=== PATIENT | female | born 1975 | race Two or more races ===

== ENCOUNTER 2021-01-23 22:49 | Emergency (ER) | payer SELFPAY ==
[~2021-01-23] VITALS: Ht 160 cm; Wt 80.0 kg
[2021-01-23 23:37] VITALS: BP 121/72
[2021-01-23 23:42] LABS: BILIRUBIN,URINE NEGATIVE (NEG); CLARITY,URINE CLEAR; COLOR,URINE YELLOW; NITRITE,URINE NEGATIVE (NEG); PH,URINE 5.5 (<5.0-8.0); PROTEIN,URINE NEGATIVE (NEG-TRACE); UROBILINOGEN,URINE 0.2 mg/dL (0.2 mg/dL)
[2021-01-23 23:53] LABS: BACTERIA,URINE 0 /HPF (0-FEW); RBC,URINE OCC /HPF (0-2)
--- NOTE | 2021-01-24 00:03 | PHYS DOC ---
Past Medical History Additional Past Medical Histor: INTESTINAL PROBLEMS Past Surgical History: Hysterectomy General Adult EDM: Chief Complaint: ABDOMINAL PAIN HPI: HPI: Patient is a 45 year old female with is currently on no Rx medications presents with the chief right lower quadrant abdominal pain. Patient states she has had abdominal pain for 1 week. Is located in the right lower quadrant does not radiate. Associated symptoms include nausea and vomiting. Review of Systems: Review of Systems: Review of systems: Constitutional symptoms- No fever, no chills. Eyes- No Discharge, No Visual Loss Respiratory symptoms- No shortness of breath, No wheezing, No Dyspnea on Exertion Cardiovascular Systems; No chest pain, No Palpitations, No syncope Gastrointestinal symptoms: Positive abdominal pain, Positive nausea, Positive vomiting no diarrhea. Genitourinary symptoms: No dysuria. Musculoskeletal symptoms: No back pain No extremity pain. NEUROLOGICAL Symptoms: No headache, no generalized weakness; No focal Weakness Skin: No rash. Heart Score: C/O Chest Pain: N/A Risk Factors: Risk Factors: DM, Current or recent (<one month) smoker, HTN, HLP, family history of CAD, obesity. Risk Scores: Score 0 - 3: 2.5% MACE over next 6 weeks - Discharge Home Score 4 - 6: 20.3% MACE over next 6 weeks - Admit for Clinical Observation Score 7 - 10: 72.7% MACE over next 6 weeks - Early Invasive Strategies Current Medications: Current Medications Medications (Trade) Dose Ordered Sig/Radha Start Time Stop Time Status Last Admin Dose Admin Morphine Sulfate (Morphine Sulfate) 4 mg 1X ONCE 01/24/21 00:00 01/24/21 00:01 UNV Sodium Chloride 1,000 ml @ 1,000 mls/hr 1X ONCE 01/24/21 00:00 01/24/21 00:59 UNV Allergies: Allergies: Allergies Coded Allergies Type Severity Reaction Last Updated Verified No Known Drug Allergies 01/23/21 No Physical Exam: PE: General: alert, no acute distress. Skin: warm, dry and intact, no erythema, no rash. HENT: bilateral external ears normal, oropharynx moist, nose normal. Head:: Normocephalic, atraumatic. Neck: Trachea midline. Eyes: EOMI, Normal conjunctiva, No drainage CARDIOVASCULAR: Regular rate and rhythm RESPIRATORY: No respiratory distress Back: Full range of motion. MUSCULOSKELETAL: Full range of motion of bilateral upper and lower extremities. GASTROINTESTINAL: tenderness to palpation right lower quadrant, no rebound or guarding. NEUROLOGICAL: Alert and noted to person, place and time. No neurological deficits observed Psychiatric: Cooperative. Normal judgment Current Patient Data: Labs: Laboratory Tests Test 01/23/21 23:28 01/23/21 23:31 Urine Collection Type Unknown Urine Color Yellow Urine Clarity Clear Urine pH 5.5 (<5.0-8.0) Urine Specific [place] 1.025 (1.000-1.030) Urine Protein Negative mg/dL (NEG-TRACE) Urine Glucose (UA) Negative mg/dL (NEG) Urine Ketones (Stick) Negative mg/dL (NEG) Urine Blood Negative (NEG) Urine Nitrite Negative (NEG) Urine Bilirubin Negative (NEG) Urine Urobilinogen Dipstick 0.2 mg/dL (0.2 mg/dL) Urine Leukocyte Esterase Negative (NEG) Urine RBC Occ /HPF (0-2) Urine WBC 1-4 /HPF (0-4) Urine Squamous Epithelial Cells Mod /LPF Urine Bacteria 0 /HPF (0-FEW) Urine Mucus Mod /LPF POC Urine HCG, Qualitative Hcg negative (Negative) Vital Signs: Vital Signs Date Time Temp Pulse Resp B/P (MAP) Pulse Ox O2 Delivery O2 Flow Rate FiO2 01/23/21 23:37 98.2 64 16 121/72 100 Room Air 98.2 EKG: EKG: [] Radiology/Procedures: Radiology/Procedures: [] Course & Med Decision Making: Course & Med Decision Making Pertinent Labs and Imaging studies reviewed. (See chart for details) [] Patient was evaluated for chief complaint. Work-up consisted of laboratory analysis and radiologic imaging. Results reviewed and discussed with patient. Patient's CMP without acute abnormalities. CT abdomen pelvis interpretation by radiologist as negative. Patient was treated with morphine and Zofran with improvement of symptoms. Patient states pain is almost completely resolved. Discharge patient home with Ultram and Zofran. Patient to follow-up with primary care physician. Dio Disclaimer: Dio Disclaimer: This electronic medical record was generated, in whole or in part, using a voice recognition dictation system. Departure Departure Impression: Primary Impression: Abdominal pain Disposition: HOME / SELF CARE / HOMELESS Condition: STABLE Referrals: NO PCP (PCP) Patient Instructions: Abdominal Pain Scripts Ondansetron Hcl (ZOFRAN) 4 Mg Tablet 1 TAB PO Q6HRS, #20 TAB Prov: ТАТЬЯНА LOZANO DO 01/24/21 Tramadol Hcl (ULTRAM) 50 Mg Tablet 1 TAB PO PRN Q6HRS PRN for pain MDD 4 Tablet(s) for 7 Days, #28 TAB 0 Refills Prov: ТАТЬЯНА LOZANO DO 01/24/21 ТАТЬЯНА LOZANO DO Jan 24, 2021 00:03
[2021-01-24] MEDS ORDERED: CONTRAST GIVEN. MC PRN (00:15)
[2021-01-24] MEDS ORDERED: IOHEXOL 300 MG/ML 100ML VIAL. IV ONE (00:30)
[2021-01-24] MEDS ORDERED: MORPHINE SULFATE 4 MG/ML INJ. IVP ONE (00:30)
[2021-01-24] MEDS ORDERED: IV NORMAL SALINE 1000ML BAG 1,000 ML IV ONE (00:30)
[2021-01-24 00:33] LABS: CALCIUM 9.7 mg/dL (8.5-10.1); CREATININE 0.9 mg/dL (0.6-1.0); POTASSIUM 4.2 mmol/L (3.5-5.1)
[2021-01-24 00:39] LABS: ALBUMIN 4.2 g/dL (3.4-5.0); ALBUMIN/GLOBULIN RATIO 1.1 (1.0-1.7); TOTAL BILIRUBIN 0.2 mg/dL (0.2-1.0); TOTAL PROTEIN 8.1 g/dL (6.4-8.2)
--- NOTE | 2021-01-24 01:17 | RAD ---
Study: CT abdomen/pelvis with intravenous contrast Indication: Right lower quadrant abdominal pain. Comparison: None. Technique: Helical CT imaging performed of the abdomen and pelvis after the intravenous administratio n of 75 cc Omnipaque 300 contrast. Sagittal and coronal reformats were obtained. One or more of the following individualized dose reduction techniques were utilized for this examinat ion: 1. Automated exposure control 2. Adjustment of the mA and/or kV according to patient size 3. Use of iterative reconstruction technique. Findings: Subpleural right lower lobe pulmonary nodule on image 2 series 2 measuring 7 mm AP. Probable partiall y imaged 3 mm nodule at the upper aspect of the right middle lobe on image 1 series 2. A few addition al millimetric nodules. Mild bibasilar volume loss. Partially imaged right lateral chest wall lymph n ode on image 1 series 2 measuring 0.7 cm short axis. Hepatic steatosis. No discrete parenchymal abnormality. Within normal limits gallbladder, biliary vane e, pancreas and spleen. No adrenal gland mass. Symmetric renal parenchymal enhancement. No hydronephr osis. Unremarkable urinary bladder which is mildly distended. Absent uterus. No adnexal mass. No acute abnormality of the colon. Mild volume well-formed stool burden. Normal appendix. Nonobstruct ed small bowel. Poorly evaluated stomach on account of underdistention. No major vascular abnormality. No lymphadenopathy. No acute or aggressive osseous process. Mild periarticular sclerosis at the right more so than left S I joints without ankylosis or large erosion. Impression: 1. No acute abnormality identified throughout the abdomen or pelvis. In the setting of reported righ t lower quadrant pain the appendix is normal. 2. A few pulmonary nodules at the lower lobes the largest at the subpleural aspect of the right lowe r lobe measuring up to 7 mm. The additional nodules are 3 mm or less. Per Fleischner guidelines for a n incidental nodule measuring between 6 to 8 mm, follow-up CT chest in 6-12 months. 3. Hepatic steatosis. Electronically signed by: ABDULAZIZ SEQUEIRA MD (01/24/2021 1:14 AM) [facility] [place]
[2021-01-24] MEDS ORDERED: ONDA4TAB7 PO (02:52)
[2021-01-24] MEDS ORDERED: TRAM-48 PO (02:52)
[2021-01-24 02:56] LABS: BASO % 1 % (0-3); EOS # 0.2 x10^3/uL (0.0-0.7); EOS % 2 % (0-3); HEMATOCRIT 42.2 % (36.0-47.0); HEMOGLOBIN 14.2 g/dL (12.0-15.5); LYMPH # 3.6 x10^3/uL (1.0-4.8); LYMPH % 48 % (24-48); MEAN CORPUSCULAR HEMOGLOBIN 30 pg (25-35); MEAN CORPUSCULAR HGB CONC 34 g/dL (31-37); MEAN CORPUSCULAR VOLUME 89 fL (79-100); MONO # 0.6 x10^3/uL (0.0-1.1); MONO % 8 % (0-9); NEUT # 3.1 x10^3/uL (1.8-7.7); NEUT % 41 % (31-73); PLATELET COUNT 270 x10^3/uL (140-400); RED BLOOD COUNT 4.76 x10^6/uL (3.50-5.40); WHITE BLOOD COUNT 7.6 x10^3/uL (4.0-11.0)
== END 2021-01-24 03:09 | disposition home or self-care (01) ==
LOC: ER 22:49
DX: R10.31 Right lower quadrant pain (principal); R11.2 Nausea with vomiting, unspecified; Z90.710 Acquired absence of both cervix and uterus
CPT/HCPCS: 36415; 74177; 80053; 81001; 81025; 83690; 85025; 96361; 96374; 99285; J2270; J7030; Q9967

== ENCOUNTER → 2021-03-14 | Outpatient (CLI) | payer OTHER ==
[~2021-03-14] MED LIST: CONTRAST GIVEN. MC PRN; IOHEXOL 240 MG/ML 50ML VIAL. PO ONE; IOHEXOL 300 MG/ML 100ML VIAL. IV ONE; ONDA4TAB7 PO; TRAM-48 PO
--- NOTE | 2021-03-14 12:27 | RAD ---
INDICATION: Reason: chronic lower abd pain x 4 months / Spl. Instructions: omni 300 75ml omni 240 50 ml / History: COMPARISON: January 23, 2021 TECHNIQUE: Axial CT images were obtained through the abdomen and pelvis with intravenous contrast. One or more of the following individualized dose reduction techniques were utilized for this examinat ion: 1. Automated exposure control; 2. Adjustment of the mA and/or kV according to patient size; 3 . Use of iterative reconstruction technique. FINDINGS: Repeat demonstration of some nodules at the partially visualized lung bases. Again these measure up t o about 7 mm. Vascular: No abdominal aortic aneurysm. Hepatobiliary: Liver is mildly low density which is nonspecific but can be seen with fatty infiltrati on. Pancreas: No peripancreatic edema. Spleen: Spleen unremarkable. Renal: No hydronephrosis. Bladder: No definite inflammatory changes to the bladder. Gastrointestinal: Left adnexal cystic lesion is suspected measuring approximately 2-3 cm. Could also be dominant follicle. Appendix measures 6 mm proximally and tapers distally without adjacent inflamma tory changes. No dilated loops of bowel to suggest obstruction. Degenerative changes spine. Degenerative changes sacroiliac joints. IMPRESSION: * No evidence of bowel obstruction. The appendix is at the upper limits of normal in size without a djacent inflammatory changes therefore this does not fulfill the CT criteria for appendicitis. * Dominant follicle or small cyst at left ovary. Electronically signed by: Nuno oWod MD (03/14/2021 12:25 PM) [id number]
== END ==
LOC: CT 10:11
PROVIDERS: ATTEND Family Medicine
DX: R19.5 Other fecal abnormalities (principal); R10.9 Unspecified abdominal pain; R91.8 Other nonspecific abnormal finding of lung field; M46.1 Sacroiliitis, not elsewhere classified; M47.817 Spondylosis without myelopathy or radiculopathy, lumbosacral region
CPT/HCPCS: 74177; Q9966; Q9967